=== PATIENT | female | born 1980 | race Caucasian/White ===

== ENCOUNTER → 2017-08-11 10:51 | Outpatient (CLI) | payer OTHER, MEDICAID, SELFPAY ==
[2017-08-11 11:30] LABS: Hemoglobin A1C% w Est Avg Glu 6.6 % (4.0-6.0)
== END ==
PROVIDERS: PCP Family Medicine; Visit Provider Family Medicine
DX: O24.919 Unspecified diabetes mellitus in pregnancy, unspecified trimester (principal)
CPT/HCPCS: 36415; 83036